=== PATIENT | male | born 1990 | race Caucasian/White ===

== ENCOUNTER → 2021-12-19 | Emergency (ER) | payer OTHER ==
[~2021-12-19] VITALS: Ht 167.6 cm; Wt 95.3 kg
[~2021-12-19] MED LIST: AMOX1TAB5; CLINDAMYCIN HC300 MG PO; DICLOFENAC POTA50 MG PO; DOLOGESIC 500-1 EACH; INTESTINEX680 M1 PO; PEPCID AC20 MG PO
== END | disposition home or self-care (01) ==
LOC: ER 02:14
DX: K04.7 Periapical abscess without sinus (principal); K02.9 Dental caries, unspecified